=== PATIENT | male | born 1955 | race African-American/Black ===

== ENCOUNTER 2020-05-05 17:30 | Emergency (ER) | payer OTHER ==
[~2020-05-05] VITALS: Ht 198.1 cm; Wt 108.9 kg
[2020-05-05 17:58] VITALS: BP 101/67
--- NOTE | 2020-05-05 18:06 | NUR ---
64 Y/O M C/C LEFT HIP/BILATERAL LOWER EXTREMITY PAIN, 8/10 PAIN, THROBBING SENSATION X 4 MONTHS. PER PT ONGOING PROBLEM AND ITS CURRENTLY SEEING SPECIALIST IN REGARDS OF PAIN. NKA. HX HTN,BPH. DENIES HX OF ARTHRITIS. RX NORVASC. NO NVD. SIDE RAIL X1.
[2020-05-05] MEDS ORDERED: GABAPENTIN 300 MG CAP PO ONE (18:15)
[2020-05-05] MEDS ORDERED: KETOROLAC 30 MG/ML VIAL IM ONE (18:15)
[2020-05-05 18:37] VITALS: BP 106/62
--- NOTE | 2020-05-05 18:37 | NUR ---
Patient discharged with v/s stable. Written and verbal after care instructions given and explained. Patient alert, oriented and verbalized understanding of instructions. Ambulatory with steady gait. All questions addressed prior to discharge. ID band removed. Patient advised to follow up with PMD. Rx of GABAPENTIN,TYLENOL given. Patient educated on indication of medication including possible reaction and side effects. Opportunity to ask questions provided and answered.
== END 2020-05-05 18:37 | disposition home or self-care (01) ==
LOC: MED 17:30
DX: M54.30 Sciatica, unspecified side (principal); I10 Essential (primary) hypertension; M25.50 Pain in unspecified joint
CPT/HCPCS: 96372; 99283; J1885

== ENCOUNTER 2021-05-27 12:51 | Emergency (ER) | payer SELFPAY ==
[~2021-05-27] VITALS: Ht 198.1 cm; Wt 113.4 kg
[2021-05-27 13:02] VITALS: BP 135/79
[2021-05-27] MEDS ORDERED: PSEU120T23 PO ×2 (14:19→15:01)
[2021-05-27] MEDS ORDERED: PROM118S5 PO ×2 (14:19→15:01)
--- NOTE | 2021-05-27 14:50 | NUR ---
No nursing interventions performed.
--- NOTE | 2021-05-27 14:56 | NUR ---
Patient discharged with v/s stable. Written and verbal after care instructions given and explained. Patient alert, oriented and verbalized understanding of instructions. Ambulatory with steady gait. All questions addressed prior to discharge. ID band removed. Patient advised to follow up with PMD. Rx of Promethazine/Dextromethorphan, Pseudoephedrine Hcl given. Patient educated on indication of medication including possible reaction and side effects. Opportunity to ask questions provided and answered.
== END 2021-05-27 14:56 | disposition home or self-care (01) ==
LOC: MED 12:51
DX: J06.9 Acute upper respiratory infection, unspecified (principal); I10 Essential (primary) hypertension; Z79.899 Other long term (current) drug therapy
CPT/HCPCS: 71045; 99283